=== PATIENT | male | born 1995 | race Two or more races ===

== ENCOUNTER 2021-08-11 01:02 | Emergency (ER) | payer OTHER ==
[~2021-08-11] VITALS: Ht 167.6 cm; Wt 68.0 kg
[2021-08-11 04:00] VITALS: BP 129/89
== END 2021-08-11 04:44 | disposition home or self-care (01) ==
LOC: EMS 01:02
DX: S60.221A Contusion of right hand, initial encounter (principal); F17.210 Nicotine dependence, cigarettes, uncomplicated; Z88.0 Allergy status to penicillin; W22.8XXA Striking against or struck by other objects, initial encounter; Y93.89 Activity, other specified; Y92.89 Other specified places as the place of occurrence of the external cause; Y99.8 Other external cause status
CPT/HCPCS: 99283

== ENCOUNTER 2025-02-16 00:27 | Emergency (ER) | payer OTHER ==
[~2025-02-16] VITALS: Ht 167.6 cm; Wt 77.3 kg
[2025-02-16 00:28] VITALS: BP 122/89; PULSE 100; RESP 18; TEMP 98; O2SAT 97
== END 2025-02-16 02:06 | disposition home or self-care (01) ==
LOC: EMS 00:28
DX: S01.111A Laceration without foreign body of right eyelid and periocular area, initial encounter (principal); F17.210 Nicotine dependence, cigarettes, uncomplicated; Z90.49 Acquired absence of other specified parts of digestive tract; Z88.0 Allergy status to penicillin; Y04.0XXA Assault by unarmed brawl or fight, initial encounter; Y93.89 Activity, other specified; Y92.89 Other specified places as the place of occurrence of the external cause; Y99.8 Other external cause status
CPT/HCPCS: 12011; 99282; Z7502